=== PATIENT | female | born 1995 | race American Indian/Alaskan Native ===

== ENCOUNTER 2017-05-14 19:53 | Emergency (ER) | payer MEDICAID, OTHER ==
--- NOTE | 2017-05-14 22:43 | Emergency Department Report ---
HPI - General Chief Complaint: Chest Pain Time Seen by Provider: 05/14/17 22:20 - HPI HPI: Room 4 The patient is a 21-year-old female presenting with a chief complaint of chest pain and abdominal pain. Patient states for 2-3 weeks she has had eye discomfort along the right lateral ribs that worsens with yawning and inspiration. The patient states for one week she has had a sharp intermittent substernal chest pain. For the past 2-3 days she's had intermittent lower abdominal cramping and today had light vaginal bleeding only requiring one pad momentarily. The patient states she is but has not yet received care. Patient denies fever. Patient states one week ago she had a cold which consisted of cough occasionally productive of yellow sputum Location: [See above] Duration: 2-3 weeks, see above Quality: Sharp Severity: Moderate Modifying factors: [see above] Context: [see above] Mode of transportation: [not driving] ED Past Medical Hx - Past Medical History Additional medical history: anemia, Crohn's disease - Surgical History Additional Surgical History: tonsillectomy - Family History Family history: no significant - Social History Smoking Status: Never Smoker Substance Use Type: None - Medications Home Medications: Home Medications Medication Instructions Recorded Confirmed Last Taken Type Metoclopramide [Reglan] 10 mg PO TID PRN #20 tab 05/15/17 Unknown Rx Nitrofurantoin Monohyd/M-Cryst 100 mg PO BID #14 capsule 05/15/17 Unknown Rx [Macrobid 100 mg Capsule] ED Review of Systems ROS: Stated complaint: CP- RT SIDED Other details as noted in HPI Constitutional: denies: fever Respiratory: cough, shortness of breath Cardiovascular: chest pain Gastrointestinal: abdominal pain Genitourinary: abnormal menses Physical Exam - Physical Exam Vital Signs: Vital Signs 05/14/17 05/14/17 05/14/17 20:00 21:58 22:15 Temperature 98 F Pulse Rate 110 H 92 H Respiratory 20 16 16 Rate Blood Pressure 123/72 Blood Pressure 119/68 [Left] O2 Sat by Pulse 100 99 99 Oximetry Physical Exam: GENERAL: The patient is well-developed well-nourished female lying on stretcher not appearing to be in acute distress. [] HEENT: Normocephalic. Atraumatic. Extraocular motions are intact. Patient has moist mucous membranes. NECK: Supple. Trachea midline CHEST/LUNGS: Clear to auscultation. There is no respiratory distress noted. HEART/CARDIOVASCULAR: Regular. There is no tachycardia. There is no gallop rub or murmur. ABDOMEN: Abdomen is soft, with mild suprapubic discomfort to palpation. There is no rebound or guarding. Patient has normal bowel sounds. There is no abdominal distention. SKIN: There is no rash. There is no edema. There is no diaphoresis. NEURO: The patient is awake, alert, and oriented. The patient is cooperative. The patient has normal speech MUSCULOSKELETAL:There is no evidence of acute injury. ED Course Vital Signs 05/14/17 05/14/17 05/14/17 20:00 21:58 22:15 Temperature 98 F Pulse Rate 110 H 92 H Respiratory 20 16 16 Rate Blood Pressure 123/72 Blood Pressure 119/68 [Left] O2 Sat by Pulse 100 99 99 Oximetry ED Medical Decision Making - Lab Data Result diagrams: 05/14/17 22:30 05/14/17 22:30 - EKG Data -: EKG Interpreted by Me EKG shows normal: sinus rhythm Rate: normal - EKG Data When compared to previous EKG there are: previous EKG unavailable Interpretation: other (no ischemic changes seen) - Radiology Data Radiology results: report reviewed (VQ scan), image reviewed (chest x-ray, VQ scan) interpreted by me: Chest x-ray-no focal infiltrates, no pneumothorax FINAL REPORT PROCEDURE: NM PERFUSION ONLY LUNG SCAN TECHNIQUE: 2.5 mCi Tc-99m MAA was injected IV for quantitative differential pulmonary perfusion imaging. Injection site: RIGHT antecubital fossa.CPT 67672 HISTORY: pleurisy, shortness of breath COMPARISON: 05/14/2017 FINDINGS: Perfusion: No defects. IMPRESSION: Normal Examination. Transcribed By: CO Dictated By: CARIDAD SALDIVAR MD Electronically Authenticated By: CARIDAD SALDIVAR MD Signed Date/Time: 05/14/172006 DD/ 06 TD/TT: 05/14/172006 FINAL REPORT EXAM: US OB CLINICAL INDICATIONS: lower abdominal pain, vaginal bleeding FINDINGS: Real-time ultrasound of the pelvis was performed by transabdominal and endovaginal technique and demonstrates a single live intrauterine gestation at approximately 10 weeks and 6 days with cardiac activity 178 bpm. There is subchorionic hemorrhage adjacent to the sac, 1.3 x 1.6 cm. The right ovary measures 3.6 x 2.6 x 2.9 cm contains a structure, isoechoic to ovarian parenchyma, measuring 1.7 cm without internal flow, likely hemorrhagic cyst. Left ovary measures 3.3 x 2.3 x 3.3 cm and appears unremarkable. IMPRESSION: LIVE INTRAUTERINE GESTATION AT 10 WEEKS AND 6 DAYS Transcribed By: JEMAL Dictated By: NORA SALINAS MD Electronically Authenticated By: NORA SALINAS MD Signed Date/Time: 05/14/172157 DD/ 57 TD/TT: 05/14/172157 - Medical Decision Making Patient states she is already taking vitamins. - Differential Diagnosis PE, pneumonia, pneumothorax, threatened Critical care attestation.: If time is entered above; I have spent that time in minutes in the direct care of this critically ill patient, excluding procedure time. ED Disposition Clinical Impression: Pleurisy, Threatened , Subchorionic hemorrhage in first trimester Disposition: -01 TO HOME OR SELFCARE Is pt being admited?: No Does the pt Need Aspirin: No Condition: Stable Instructions: Threatened Miscarriage (ED) Additional Instructions: Return to the emergency department immediately should you develop worsening symptoms, fever, inability to tolerate food or liquid or any other concerns. Prescriptions: Metoclopramide [Reglan] 10 mg PO TID PRN #20 tab PRN Reason: Nausea Nitrofurantoin Monohyd/M-Cryst [Macrobid 100 mg Capsule] 100 mg PO BID #14 capsule Referrals: PRIMARY CAREMD [Primary Care Provider] - 3-5 Days [facility] [Provider Group] - 3-5 Days Time of Disposition: 02:13
[2017-05-14 22:46] LABS: Basophils % (Auto) 0.4 % (0.0-1.8); Eosinophils % (Auto) 2.3 % (0.0-4.3); Hematocrit 29.8 % (30.3-42.9); Hemoglobin 9.4 gm/dl (10.1-14.3); Mean Corpuscular HGB Conc 32 % (30-34); Platelet Count 353 K/mm3 (140-440); Red Blood Count 4.27 M/mm3 (3.65-5.03); Red Cell Distribution Width 17.3 % (13.2-15.2); White Blood Count 5.2 K/mm3 (4.5-11.0)
[2017-05-14 22:53] LABS: Mean Corpuscular Hemoglobin 22 pg (28-32); Mean Corpuscular Volume 70 fl (79-97)
[2017-05-14 23:04] LABS: Anion Gap 15 mmol/L; BUN/Creatinine Ratio 14; Blood Urea Nitrogen 7 mg/dL (7-17); Calcium 8.9 mg/dL (8.4-10.2); Carbon Dioxide 26 mmol/L (22-30); Creatine Kinase 58 units/L (30-135); Glucose 87 mg/dL (65-100); Potassium 4.2 mmol/L (3.6-5.0); Sodium 137 mmol/L (137-145)
[2017-05-14 23:07] LABS: Creatine Kinase MB < 1.0 ng/mL (0.0-4.0)
[2017-05-14 23:27] LABS: Bilirubin,Urine NEG (Negative); Blood,Urine NEG (Negative); Ketones,Urine NEG (Negative); Leukocyte Esterase,Urine LG (Negative); Mucus,Urine FEW /HPF; Nitrite,Urine NEG (Negative); Protein,Urine <15 mg/dL mg/dL (Negative); Urobilinogen,Urine < 2.0 mg/dL (<2.0)
--- NOTE | 2017-05-15 00:11 | Nuclear Medicine Report ---
FINAL REPORT PROCEDURE: NM PERFUSION ONLY LUNG SCAN TECHNIQUE: 2.5 mCi Tc-99m MAA was injected IV for quantitative differential pulmonary perfusion imaging. Injection site: RIGHT antecubital fossa.CPT 31359 HISTORY: pleurisy, shortness of breath COMPARISON: 05/14/2017 FINDINGS: Perfusion: No defects. IMPRESSION: Normal Examination.
--- NOTE | 2017-05-15 00:46 | XRay Report ---
FINAL REPORT PROCEDURE: Portable upright chest x-ray TECHNIQUE: Chest radiograph portable upright view. CPT 91153 HISTORY: chest pain COMPARISON: No prior studies are available for comparison. FINDINGS: Heart: Magnified due to projection appears to be normal size.. Mediastinum/Vessels: Normal. Lungs/Pleural space: Normal. Bony thorax: No acute osseous abnormality. Life support devices: None. IMPRESSION: No acute cardiopulmonary abnormality.
--- NOTE | 2017-05-15 02:01 | Ultrasound Report ---
FINAL REPORT EXAM: US OB CLINICAL INDICATIONS: lower abdominal pain, vaginal bleeding FINDINGS: Real-time ultrasound of the pelvis was performed by transabdominal and endovaginal technique and demonstrates a single live intrauterine gestation at approximately 10 weeks and 6 days with cardiac activity 178 bpm. There is subchorionic hemorrhage adjacent to the sac, 1.3 x 1.6 cm. The right ovary measures 3.6 x 2.6 x 2.9 cm contains a structure, isoechoic to ovarian parenchyma, measuring 1.7 cm without internal flow, likely hemorrhagic cyst. Left ovary measures 3.3 x 2.3 x 3.3 cm and appears unremarkable. IMPRESSION: LIVE INTRAUTERINE GESTATION AT 10 WEEKS AND 6 DAYS
[2017-05-15 02:26] VITALS: BP 108/72
== END 2017-05-15 02:33 | disposition home or self-care (01) ==
LOC: ED 19:53
DX: O20.0 Threatened abortion (principal); O20.8 Other hemorrhage in early pregnancy; O26.891 Other specified pregnancy related conditions, first trimester; R09.1 Pleurisy; Z3A.10 10 weeks gestation of pregnancy
CPT/HCPCS: 36415; 71010; 76801; 76817; 78580; 80048; 81001; 82550; 82553; 84484; 84702; 85025; 87086; 93005; 93010; 99284; A9540